=== PATIENT | female | born 1940 | race Caucasian/White ===

== ENCOUNTER 2024-12-29 06:51 | Inpatient (IN) | payer MEDICARE ==
[~2024-12-29] VITALS: Ht 162.6 cm; Wt 37.2 kg
[2024-12-29 06:51] VITALS: TEMP 98.1
[~2024-12-29 06:51] MED LIST: AMLODIPINE BESYL5 MG PO; ASPIRIN81 MG PO; AZITHROMYCIN250 MG PO; Benzonatate PO; CEPHALEXIN500 MG PO; CLOPIDOGREL75 MG PO; DICYCLOMINE HCL10 MG PO; FLAGYL500 MG PO; LEVOTHYROXINE50 MCG PO; LEVOTHYROXINE75 MCG PO; LISINOPRIL10 MG PO; LISINOPRIL20 MG PO; LOPRESSOR25 MG PO; LORATADINE10 MG PO; METOPROLOL SUCC25 MG PO; NORVASC10 MG PO; PANTOPRAZOLE SO40 MG PO; ZOFRAN4 MG PO; ZOLOFT50 MG PO
[2024-12-29] MEDS ORDERED: SODIUM CHLORIDE FLUSH 10 ML SYR IV PRN (07:45)
[2024-12-29 07:54] LABS: BASOPHILS % 0.2 % (0.0-1.0); EOSINOPHILS % 0.0 % (0.0-6.0); LYMPHOCYTES % 28.0 % (18.0-39.1); MONOCYTES % 3.7 % (4.4-11.3); NEUTROPHILS % 67.4 % (38.7-80.0); RED CELL DISTRIBUTION WIDTH 14.6 % (11.7-14.4)
[2024-12-29 08:22] LABS: EST GLOMERULAR FILTRATION RATE 62.0 ML/MIN (>=60)
[2024-12-29] MEDS: SODIUM CHLORIDE 0.9% 1000ML 1,000 ML IV ONE (08:31)
[2024-12-29] MEDS ORDERED: IOPAMIDOL 370 MG/ML 100 ML INFUS..BTL INJ ONE (08:41)
[2024-12-29 09:04] LABS: EPITHELIAL CELLS,URINE FEW /LPF; LEUKOCYTE ESTERASE ,URINE LARGE (NEGATIVE); PROTEIN,URINE DIPSTICK 2+ (NEGATIVE); URINE UROBILINOGEN 1 mg/dL (0.2 - 1); WBC,URINE (MAN) >50 /HPF (0-5)
[2024-12-29] MEDS: CEFTRIAXONE 2 GM in SODIUM CHLORIDE 0.9% 100 ML IV SCH (09:17)
[2024-12-29] MEDS ORDERED: ONDANSETRON HCL INJ 2MG/ML 2ML 2 MG/ML VIAL IV PRN (10:00)
[2024-12-29 10:15] LABS: INR 0.94
[2024-12-29 11:00] VITALS: PULSE 78; RESP 20
[2024-12-29 12:13] VITALS: BP 107/53; PULSE 92; RESP 17; TEMP 96.6; O2SAT 95
[2024-12-29 14:02] LABS: BAND NEUTROPHILS % (MANUAL) 6 %; BASOPHILS % (MANUAL) 0 % (0-1.5); LYMPHOCYTES % (MANUAL) 16 % (19-48); MONOCYTES % (MANUAL) 4 % (3.4-9.0); NEUTROPHILS % (MANUAL) 73 % (40-74); REACTIVE LYMPHOCYTES 1
[2024-12-29 14:04] LABS: PLATELET ESTIMATE SLIGHTLY INCREASED; PLATELET MORPHOLOGY COMMENT NORMAL; RBC MORPHOLOGY COMMENT NORMAL
[2024-12-29 15:39] VITALS: BP 124/58; PULSE 92; RESP 18; TEMP 96.9; O2SAT 93
[2024-12-29] MEDS: SODIUM CHLORIDE 0.9% 1000ML 1,000 ML IV SCH (17:38)
[2024-12-29] MEDS: METOPROLOL SUCCINATE 25 MG TAB XL PO SCH (17:38)
[2024-12-29 20:57] VITALS: BP 119/62; PULSE 96; RESP 20; TEMP 97.8; O2SAT 95
[2024-12-29 21:00] VITALS: BP 119/62; PULSE 96; RESP 20; TEMP 97.8; O2SAT 95
[2024-12-30] VITALS (8 sets, daily range): BP systolic 125–138; BP diastolic 54–73; PULSE 80–94; RESP 17–19; TEMP 97.1–98.4; O2SAT 90–100
[2024-12-30] MEDS ORDERED: ARTIFICIAL TEARS (OPTH) 15 ML BTL OU PRN
[2024-12-30] MEDS: LEVOTHYROXINE SODIUM 75 MCG TAB PO SCH (09:31)
[2024-12-30] MEDS: LORATADINE 10 MG TAB PO SCH (09:31)
[2024-12-30] MEDS: CLOPIDOGREL BISULFATE 75 MG TAB PO SCH (09:31)
[2024-12-30] MEDS: ASPIRIN 81 MG CHEW TAB PO SCH (09:32)
[2024-12-30] MEDS ORDERED: OMEPRAZOLE40 MG PO (20:27)
[2024-12-31] VITALS (9 sets, daily range): BP systolic 138–155; BP diastolic 57–80; PULSE 71–96; RESP 17–24; TEMP 97.6–99.7; O2SAT 90–97
[2024-12-31] MEDS: ACETAMINOPHEN 325 MG TAB PO PRN (03:23)
[2024-12-31 13:11] LABS: BASOPHILS % 0.2 % (0.0-1.0); EOSINOPHILS % 0.5 % (0.0-6.0); LYMPHOCYTES % 27.8 % (18.0-39.1); MONOCYTES % 4.6 % (4.4-11.3); NEUTROPHILS % 66.2 % (38.7-80.0); RED CELL DISTRIBUTION WIDTH 14.4 % (11.7-14.4)
[2024-12-31 13:32] LABS: EST GLOMERULAR FILTRATION RATE 99.0 ML/MIN (>=60)
[2025-01-01] VITALS (8 sets, daily range): BP systolic 134–174; BP diastolic 66–77; PULSE 82–93; RESP 16–22; TEMP 97.8–99; O2SAT 92–98
[2025-01-01] MEDS: SENNA-S TABLET PO SCH (12:27)
[2025-01-01] MEDS: BISACODYL 10 MG SUPP PR PRN (12:27)
[2025-01-02] VITALS (7 sets, daily range): BP systolic 115–164; BP diastolic 61–70; PULSE 82–92; RESP 16–20; TEMP 97.1–98.1; O2SAT 93–100
[2025-01-02 05:06] LABS: BASOPHILS % 0.4 % (0.0-1.0); EOSINOPHILS % 0.7 % (0.0-6.0); LYMPHOCYTES % 29.6 % (18.0-39.1); MONOCYTES % 3.6 % (4.4-11.3); NEUTROPHILS % 65.0 % (38.7-80.0); RED CELL DISTRIBUTION WIDTH 14.4 % (11.7-14.4)
[2025-01-02 05:29] LABS: EST GLOMERULAR FILTRATION RATE 104.0 ML/MIN (>=60)
[2025-01-02] MEDS ORDERED: HYDRALAZINE HCL 25 MG TAB PO PRN (08:45)
[2025-01-02] MEDS: NIFEDIPINE CR 30 MG TAB PO SCH (10:46)
[2025-01-03] VITALS (10 sets, daily range): BP systolic 115–147; BP diastolic 56–67; PULSE 82–99; RESP 18–20; TEMP 97.5–98.2; O2SAT 97–100
[2025-01-03 05:11] LABS: BASOPHILS % 0.6 % (0.0-1.0); EOSINOPHILS % 1.6 % (0.0-6.0); LYMPHOCYTES % 29.8 % (18.0-39.1); MONOCYTES % 4.2 % (4.4-11.3); NEUTROPHILS % 63.2 % (38.7-80.0); RED CELL DISTRIBUTION WIDTH 14.2 % (11.7-14.4)
[2025-01-03] MEDS ORDERED: MAGNESIUM HYDROXIDE 30 ML UDC PO PRN (09:30)
[2025-01-03] MEDS: MAGNESIUM HYDROXIDE 30 ML UDC PO ONE (10:19)
[2025-01-04] VITALS (7 sets, daily range): BP systolic 129–148; BP diastolic 58–72; PULSE 81–93; RESP 18; TEMP 97.7–98.2; O2SAT 99–100
[2025-01-04] MEDS ORDERED: POTASSIUM CHL IV PRN (09:15)
[2025-01-04] MEDS ORDERED: POTASSIUM CHLORIDE 20 MEQ TAB CR PO SCH (09:15)
[2025-01-04] MEDS ORDERED: SODIUM CHLORIDE 0.9% IV PRN (09:15)
[2025-01-05] VITALS: BP 118/58; PULSE 83; RESP 18; TEMP 97.7; O2SAT 100
[2025-01-05 04:00] VITALS: BP 152/68; PULSE 93; RESP 18; TEMP 98.3; O2SAT 100
[2025-01-05 07:45] VITALS: BP 152/68; PULSE 93; RESP 18; TEMP 98.3; O2SAT 100
[2025-01-05 08:00] VITALS: BP 142/69; PULSE 81; RESP 17; TEMP 97.8; O2SAT 99
[2025-01-05 12:00] VITALS: BP 147/62; PULSE 88; RESP 20; TEMP 97.9; O2SAT 99
[2025-01-05] MEDS: LACTOBACILLUS ACIDOPHILUS CAPSULE PO SCH (12:54)
[2025-01-05 15:00] VITALS: BP 158/70; PULSE 86; RESP 19; TEMP 98.6; O2SAT 99
== END 2025-01-05 16:15 | DRG 871 ==
LOC: ER 07:05 → ERHOLD 09:50 → MED/SURG 11:59 → OBSVTOIN 12:51 → MED/SURG3 01-05 10:26
PROVIDERS: ADMIT Internal Medicine; ATTEND Internal Medicine
DX: A41.50 Gram-negative sepsis, unspecified (principal); E43 Unspecified severe protein-calorie malnutrition; E87.20 Acidosis, unspecified; R64 Cachexia; C56.1 Malignant neoplasm of right ovary; E87.1 Hypo-osmolality and hyponatremia; Z68.1 Body mass index [BMI] 19.9 or less, adult; N39.0 Urinary tract infection, site not specified; E86.0 Dehydration; I10 Essential (primary) hypertension; I73.9 Peripheral vascular disease, unspecified; E78.5 Hyperlipidemia, unspecified; R33.9 Retention of urine, unspecified; I73.00 Raynaud's syndrome without gangrene; K59.00 Constipation, unspecified; R53.81 Other malaise; Z79.02 Long term (current) use of antithrombotics/antiplatelets; Z79.82 Long term (current) use of aspirin; Z79.890 Hormone replacement therapy; Z86.73 Personal history of transient ischemic attack (TIA), and cerebral infarction without residual deficits; Z88.5 Allergy status to narcotic agent; Z88.0 Allergy status to penicillin; Z91.018 Allergy to other foods
CPT/HCPCS: 36415; 71045; 74018; 74177; 80048; 80053; 81001; 83605; 85025; 85610; 85730; 87040; 87086; 87186; 93005; 99252; 99285; J0692; J0696; J2470; J7030; J7050; Q9967

== ENCOUNTER 2025-02-06 10:05 | Emergency (ER) | payer MEDICARE ==
[~2025-02-06] VITALS: Ht 170.2 cm; Wt 40.8 kg
[~2025-02-06 10:05] MED LIST changes: +OMEPRAZOLE40 MG PO
[2025-02-06] MEDS: ACETAMINOPHEN 325 MG TAB PO ONE (12:48)
[2025-02-06] MEDS ORDERED: CEFDINIR300 MG PO (14:25)
[2025-02-06 14:53] VITALS: PULSE 71; RESP 16; TEMP 97.8
[2025-02-06 16:47] VITALS: BP 158/74; PULSE 87; RESP 16; O2SAT 96
== END 2025-02-06 16:30 | disposition home or self-care (01) ==
LOC: ER 10:14
DX: R30.0 Dysuria (principal); N39.0 Urinary tract infection, site not specified; I10 Essential (primary) hypertension; E78.5 Hyperlipidemia, unspecified; J84.10 Pulmonary fibrosis, unspecified; I73.00 Raynaud's syndrome without gangrene; Z86.73 Personal history of transient ischemic attack (TIA), and cerebral infarction without residual deficits; Z87.19 Personal history of other diseases of the digestive system
CPT/HCPCS: 93005; 99283